=== PATIENT | female | born 1950 | race Caucasian/White ===

== ENCOUNTER 2019-03-24 09:11 | Outpatient (CLI) | payer MEDICARE ==
--- NOTE | 2019-03-24 09:31 | RAD ---
Exam: CHEST 2 VIEWS: HISTORY: Dyspnea. COMPARISON: None. 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 Slight elongation of the aorta. There is cardiomegaly. Pulmonary vessels are unremarkable. There are diffuse interstitial opacities, without consolidation or mass. Small left and right-sided p leural effusions. No pneumothorax. IMPRESSION: Cardiomegaly. There is interstitial prominence. Correlate for edema. Transcribed Date/Time: 03/24/2019 9:46 AM
== END 2019-03-24 09:12 | disposition home or self-care (01) ==
LOC: RAD 09:11
PROVIDERS: ATTEND Internal Medicine
DX: R06.00 Dyspnea, unspecified (principal); I51.7 Cardiomegaly
CPT/HCPCS: 71046

== ENCOUNTER 2019-06-23 14:44 | Outpatient (CLI) | payer MEDICARE ==
--- NOTE | 2019-06-26 08:46 | PFT ---
PATIENT HISTORY: HEIGHT: 66 IN WEIGHT: 200 SMOKER: NEVER HOW LONG: NA PACKS PER DAY: PRODUCTIVE COUGH: no LUNG DISEASE: PHYSICIAN INTERPRETATION PFT data: 06/23/2019 FEV1 1.95 L 77% predicted, FVC 2.63L 79% predicted. Residual volume is normal. Total Lung Capacity is 4 Liters , 74% predicted. DLCO is 11.1, 47% predicted. IMPRESSION: Mild Restrictive pulmonary impairment. Gas exchange impairment. Machine Paint Mixer: JULIETTE Squeezer Operator: JULIETTE BATRES
== END 2019-06-23 14:45 | disposition home or self-care (01) ==
LOC: CP 14:44
PROVIDERS: ATTEND Internal Medicine
DX: J44.1 Chronic obstructive pulmonary disease with (acute) exacerbation (principal); G47.33 Obstructive sleep apnea (adult) (pediatric)
CPT/HCPCS: 94060; 94727; 94729

== ENCOUNTER 2021-02-15 10:00 | Outpatient (CLI) | payer MEDICARE | END 2021-02-15 10:01 | disposition home or self-care (01) | LOC: BICRAD 10:00 | PROVIDERS: ATTEND Internal Medicine Critical Care Medicine | DX: R06.00 Dyspnea, unspecified (principal); I51.7 Cardiomegaly | CPT/HCPCS: 71046 ==

== ENCOUNTER 2021-08-10 09:53 | Outpatient (CLI) | payer MEDICARE | END 2021-08-10 09:54 | disposition home or self-care (01) | LOC: RAD 09:53 | PROVIDERS: ATTEND Internal Medicine Critical Care Medicine | DX: R06.00 Dyspnea, unspecified (principal) | CPT/HCPCS: 71046 ==

== ENCOUNTER 2021-08-18 09:01 | Outpatient (CLI) | payer MEDICARE | END 2021-08-18 09:02 | disposition home or self-care (01) | LOC: NM 09:01 | PROVIDERS: ATTEND Internal Medicine Critical Care Medicine | DX: R07.89 Other chest pain (principal); R91.1 Solitary pulmonary nodule; K80.20 Calculus of gallbladder without cholecystitis without obstruction; R94.6 Abnormal results of thyroid function studies; M47.814 Spondylosis without myelopathy or radiculopathy, thoracic region | CPT/HCPCS: 71250; 78306; A9503 ==

== ENCOUNTER 2021-11-14 08:55 | Outpatient (CLI) | payer MEDICARE | END 2021-11-14 08:56 | disposition home or self-care (01) | LOC: RAD 08:55 | PROVIDERS: ATTEND Internal Medicine Critical Care Medicine | DX: R06.00 Dyspnea, unspecified (principal); I51.7 Cardiomegaly | CPT/HCPCS: 71046 ==

== ENCOUNTER 2022-03-21 08:52 | Outpatient (CLI) | payer MEDICARE | END 2022-03-21 08:53 | disposition home or self-care (01) | LOC: RAD 08:52 | PROVIDERS: ATTEND Internal Medicine Critical Care Medicine | DX: R06.00 Dyspnea, unspecified (principal) | CPT/HCPCS: 71046 ==

== ENCOUNTER 2022-08-23 13:32 | Outpatient (CLI) | payer MEDICARE | END 2022-08-23 13:33 | disposition home or self-care (01) | LOC: RAD 13:32 | PROVIDERS: ATTEND Internal Medicine Critical Care Medicine | DX: R06.00 Dyspnea, unspecified (principal) | CPT/HCPCS: 71046 ==

== ENCOUNTER 2023-07-30 09:31 | Outpatient (CLI) | payer MEDICARE | END 2023-07-30 09:32 | disposition home or self-care (01) | LOC: RAD 09:31 | PROVIDERS: ATTEND Internal Medicine Critical Care Medicine | DX: R06.00 Dyspnea, unspecified (principal) | CPT/HCPCS: 71046 ==

== ENCOUNTER 2025-10-07 08:49 | Outpatient (CLI) | payer MEDICARE | END 2025-10-07 08:50 | disposition home or self-care (01) | LOC: ULT 08:49 | PROVIDERS: ATTEND Internal Medicine Gastroenterology | DX: R10.9 Unspecified abdominal pain (principal); K80.20 Calculus of gallbladder without cholecystitis without obstruction; R16.0 Hepatomegaly, not elsewhere classified | CPT/HCPCS: 76700; 93976 ==